=== PATIENT | male | born 1950 | race Caucasian/White ===

== ENCOUNTER 2019-09-10 07:49 | Emergency (ER) | payer MEDICARE ==
[2019-09-10 08:00] VITALS: RESP 20; TEMP 97.4
[2019-09-10] MEDS ORDERED: LIDOCAINE/EPINEPHR/TETRACAINE 5 ML BOTTLE TOPICAL ONE (08:28)
--- NOTE | 2019-09-10 08:58 | ED ---
General Adult HPI - General Source: patient, RN notes reviewed Mode of arrival: ambulatory Limitations: no limitations <Leonides Harvey - Last Filed: 09/10/19 08:54> <Oliver Lorenzana - Last Filed: 09/10/19 16:40> - General Chief complaint: ENT Stated complaint: Nosebleed Time Seen by Provider: 09/10/19 08:27 - History of Present Illness Initial comments: 68-year-old male with a past medical history of hypertension, diabetes mellitus, nosebleeds presents to the emergency determine for nosebleed. States this star noman this morning. States that since he has arrived at the hospital at a stop. States he has seen ENT for this in the past and had to have cautery performed.Patient has no other complaints at this time including shortness of breath, chest pain, abdominal pain, nausea or vomiting, headache, or visual changes. (Leonides Harvey) - Related Data Home Medications Medication Instructions Recorded Confirmed Allopurinol [Zyloprim] 100 mg PO DAILY 10/31/14 10/31/14 Enalapril [Vasotec] 20 mg PO BID 10/31/14 10/31/14 metFORMIN HCL [metFORMIN HCL ER] 1,000 mg PO AC-SUPPER 10/31/14 10/31/14 Previous Rx's Medication Instructions Recorded Oxymetazoline 0.05% Nasl [place] 2 spray EA NOSTRIL BID PRN #1 09/10/19 [Afrin 0.05% Nasal [place]] bottle Allergies Allergy/AdvReac Type Severity Reaction Status Date / Time codeine Allergy Unknown Verified 09/10/19 07:59 Review of Systems ROS Other: All systems not noted in ROS Statement are negative. <Leonides Harvey - Last Filed: 09/10/19 08:54> ROS Other: All systems not noted in ROS Statement are negative. <Oliver Lorenzana - Last Filed: 09/10/19 16:40> ROS Statement: Those systems with pertinent positive or pertinent negative responses have been documented in the HPI. Past Medical History Past Medical History: Diabetes Mellitus, Hypertension, Osteoarthritis (OA) Additional Past Medical History / Comment(s): gout History of Any Multi-Drug Resistant Organisms: None Reported Past Surgical History: Orthopedic Surgery Past Psychological History: No Psychological Hx Reported Smoking Status: Never smoker Past Alcohol Use History: None Reported Past Drug Use History: None Reported <Leonides Harvey - Last Filed: 09/10/19 08:54> General Exam Limitations: no limitations General appearance: alert, in no apparent distress Head exam: Present: atraumatic, normocephalic, normal inspection Eye exam: Present: normal appearance, PERRL, EOMI. Absent: scleral icterus, conjunctival injection, periorbital swelling ENT exam: Present: normal exam, normal oropharynx (No Blood in the oropharynx.), mucous membranes moist, TM's normal bilaterally, normal external ear exam, other (Do not see area for cautery within the nares.) Neck exam: Present: normal inspection, full ROM. Absent: tenderness, meningismus, lymphadenopathy Respiratory exam: Present: normal lung sounds bilaterally. Absent: respiratory distress, wheezes, rales, rhonchi, stridor Cardiovascular Exam: Present: regular rate, normal rhythm, normal heart sounds. Absent: systolic murmur, diastolic murmur, rubs, gallop, clicks Neurological exam: Present: alert <Leonides Harvey - Last Filed: 09/10/19 08:54> Course <Oliver Lorenzana - Last Filed: 09/10/19 16:40> Vital Signs 09/10/19 09/10/19 07:57 09:17 Temperature 97.4 F L Pulse Rate 57 L 76 Respiratory 20 20 Rate Blood Pressure 157/68 144/75 O2 Sat by Pulse 99 99 Oximetry - Reevaluation(s) Reevaluation #1: 09/10/19 16:39 PA supervision: I proceeded [id number] evaluation the patient he did present with complaints the onset of nose bleeding from the left side. He has had similar episodes in the past. He denies any trauma fevers chills nausea vomiting sweats or other symptoms. This began spontaneously this morning. After arrival he was placed in a room with a nasal clamp applied. He was assessed I do agree with the assessment and plan. (Oliver Lorenzana) Medical Decision Making <Leonides Harvey - Last Filed: 09/10/19 08:54> - Medical Decision Making Vitals are stable. Patient is not very hypertensive. Epistaxis this has stopped. However solution was applied to prevent any further bleeding. Patient will be discharged home with Afrin nasal spray. Recommended he return if he has any other worsening symptoms and follow-up with his ENT. (Leonides Harvey) Disposition Is patient prescribed a controlled substance at d/c from ED?: No Time of Disposition: 08:56 <Leonides Harvey - Last Filed: 09/10/19 08:54> <Oliver Lorenzana - Last Filed: 09/10/19 16:40> Clinical Impression: Epistaxis Disposition: HOME SELF-CARE Condition: Good Instructions (If sedation given, give patient instructions): Nosebleed (ED) Additional Instructions: If the nose bleeding starts again squirt 2 sprays of Afrin in each nostril and c lamp for 20 minutes. If this did not stop the bleeding clamp for another 20 minutes. If this still does not stop the bleeding then return to the emergency department. Otherwise follow-up with ENT or primary in one to 2 days. Prescriptions: Oxymetazoline 0.05% Nasl [place] [Afrin 0.05% Nasal [place]] 2 spray EA NOSTRIL BID PRN #1 bottle PRN Reason: Bleeding Referrals: Radha Wheeler MD [Primary Care Provider] - 1-2 days Joe Lomeli DO [Doctor of Osteopathic Medicine] - 1-2 days
[2019-09-10 09:18] VITALS: BP 144/75; PULSE 76
== END 2019-09-10 09:18 | disposition home or self-care (01) ==
LOC: EC 07:49
DX: R04.0 Epistaxis (principal); E11.9 Type 2 diabetes mellitus without complications; I10 Essential (primary) hypertension; Z79.84 Long term (current) use of oral hypoglycemic drugs; Z79.899 Other long term (current) drug therapy; Z88.5 Allergy status to narcotic agent
CPT/HCPCS: 99283

== ENCOUNTER 2024-03-29 10:51 | Emergency (ER) | payer MEDICARE ==
[2024-03-29 11:35] VITALS: RESP 18
--- NOTE | 2024-03-29 13:23 | ED ---
General Adult HPI - General Chief complaint: Recheck/Abnormal Lab/Rx Stated complaint: Difficulty urinating Time Seen by Provider: 03/29/24 12:55 Source: patient, RN notes reviewed, old records reviewed Mode of arrival: ambulatory Limitations: no limitations - History of Present Illness Initial comments: Patient is a 73-year-old male who presents to the emergency department complaining of urinary retention. States this has happened in the past as he does have an enlarged prostate. Currently has been ongoing for approximately 1 week. Is due to see urology been on for multiple months. States he no longer urinates very well at all over the last week and is getting worse. Denies any abdominal pain other than fullness sensation near his bladder. Denies any nausea or vomiting. Denies any diarrhea. Has never required Gomez catheter in the past. Presents for further evaluation at this time. - Related Data Home Medications Medication Instructions Recorded Confirmed Enalapril [Vasotec] 20 mg PO BID 10/31/14 10/31/14 allopurinoL [Zyloprim] 100 mg PO DAILY 10/31/14 10/31/14 metFORMIN HCL [metFORMIN HCL ER] 1,000 mg PO AC-SUPPER 10/31/14 10/31/14 Previous Rx's Medication Instructions Recorded Oxymetazoline 0.05% Nasl [place] 2 spray EA NOSTRIL BID PRN #1 09/10/19 [Afrin 0.05% Nasal [place]] bottle Ciprofloxacin HCl [Cipro] 500 mg PO Q12HR 3 Days #6 tab 03/29/24 Allergies Allergy/AdvReac Type Severity Reaction Status Date / Time codeine Allergy Unknown Verified 03/29/24 11:14 Review of Systems ROS Statement: Those systems with pertinent positive or pertinent negative responses have been documented in the HPI. Review of Systems: CONST: Denies fever EYES: Denies blurry vision ENT: Denies nasal congestion C/V: Denies Chest pain RESP: Denies shortness of breath GI: Denies abdominal pain : Endorses urinary retention SKIN: Denies rash. MSK: Denies joint pain. NEURO: Denies headache ROS Other: All systems not noted in ROS Statement are negative. Past Medical History Past Medical History: Diabetes Mellitus, Hypertension, Osteoarthritis (OA), Prostate Disorder Additional Past Medical History / Comment(s): gout History of Any Multi-Drug Resistant Organisms: None Reported Past Surgical History: Orthopedic Surgery Past Psychological History: No Psychological Hx Reported Smoking Status: Former smoker Past Alcohol Use History: None Reported Past Drug Use History: None Reported General Exam - General Exam Comments Initial Comments: General: Appears in no acute distress. HEAD: Normal with no signs of head trauma. EYES: PERRLA, EOMI, ENT: Hearing grossly intact RESPIRATORY: Clear breath sounds bilaterally. No wheezes, rales, or rhonchi. C/V: Regular rate and rhythm. S1 and S2 auscultated, ABD: Abdomen is soft other than suprapubic distention. No guarding. No rebound tenderness. No peritoneal signs. No tenderness on palpation. EXT: no obvious deformity SKIN: No rashes or lesions observed on exposed skin. NEURO: Alert and oriented x 4. Limitations: no limitations Course Vital Signs 03/29/24 03/29/24 11:10 15:03 Temperature 97.6 F 98.1 F Pulse Rate 67 76 Respiratory 18 18 Rate Blood Pressure 164/78 157/72 O2 Sat by Pulse 98 99 Oximetry Medical Decision Making - Medical Decision Making Was pt. sent in by a medical professional or institution (, PA, ELECTRICAL MAINTENANCE MAN, urgent care, hospital, or prison...) When possible be specific @ -No Did you speak to anyone other than the patient for history (EMS, parent, family, police, friend...)? What history was obtained from this source @ -No Did you review nursing and triage notes (agree or disagree)? Why? @ -I reviewed and agree with nursing and triage notes Were old charts reviewed (outside hosp., previous admission, EMS record, old EKG, old radiological studies, urgent care reports/EKG's, prison records)? Report findings @ -No old charts were reviewed Differential Diagnosis (chest pain, altered mental status, abdominal pain women, abdominal pain men, vaginal bleeding, weakness, fever, dyspnea, syncope, headache, dizziness, GI bleed, back pain, seizure, CVA, palpatations, mental health, musculoskeletal)? @ -Urinary retention, enlarged prostate, UTI, CAROL. This list is not all inclusive. EKG interpreted by me (3pts min.). @ -None done X-rays interpreted by me (1pt min.). @ -None done CT interpreted by me (1pt min.). @ -None done U/S interpreted by me (1pt. min.). @ -None done What testing was considered but not performed or refused? (CT, X-rays, U/S, labs)? Why? @ -None What meds were considered but not given or refused? Why? @ -None Did you discuss the management of the patient with other professionals (professionals i.e. , PA, ELECTRICAL MAINTENANCE MAN, lab, RT, psych nurse, social media campaign manager, peanut shaker, teacher, surveillance sensor officer, family independence case manager)? Give summary @ -No Was smoking cessation discussed for >3mins.? @ -No Was critical care preformed (if so, how long)? @ -No Were there social determinants of health that impacted care today? How? (Homelessness, low income, unemployed, alcoholism, drug addiction, transportation, low edu. Level, literacy, decrease access to med. care, half-way, rehab)? @ -No Was there de-escalation of care discussed even if they declined (Discuss DNR or withdrawal of care, Hospice)? DNR status @ -No What co-morbidities impacted this encounter? (DM, HTN, Smoking, COPD, CAD, Cancer, CVA, ARF, Chemo, Hep., AIDS, mental health diagnosis, sleep apnea, morbid obesity)? @ -Enlarged prostate Was patient admitted / discharged? Hospital course, mention meds given and route, prescriptions, significant lab abnormalities, going to OR and other pertinent info. @ -Patient presents for urinary retention. Postvoid residual was 600 cc in the bladder. Therefore Gomez catheter will be placed. Will obtain basic labs to evaluate renal function as well as urinalysis. Patient was in agreement this plan. Vital signs within acceptable limits. After Gomez catheter was placed, patient had 800 cc of urine output. Laboratory studies unremarkable with normal kidney function. Urinalysis unremarkable. I updated the patient at this time. He will go home with Gomez catheter in place with instructions to follow-up with urology. He will be empirically placed on antibiotics as well. Patient was in agreement this plan. Strict return precautions discussed. I will provide the patient with a prescription for ciprofloxacin. I instructed the patient to follow up with their PCP in the next 1-3 days. I provided contact information for follow up with urology. I explained that the patient should return to the emergency department if they experience any worsening symptoms. Strict return precautions were discussed with the patient. The patient expressed understanding of these instructions. I answered all questions that the patient had. The patient was discharged home in good condition with their prescriptions and follow up information. Undiagnosed new problem with uncertain prognosis? @ -No Drug Therapy requiring intensive monitoring for toxicity (Heparin, Nitro, Insulin, Cardizem)? @ -No Were any procedures done? @ -No Diagnosis/symptom? @ -Urinary retention, Gomez catheter placement Acute, or Chronic, or Acute on Chronic? @ -Acute Uncomplicated (without systemic symptoms) or Complicated (systemic symptoms)? @ -Complicated Side effects of treatment? @ -No Exacerbation, Progression, or Severe Exacerbation? @ -No Poses a threat to life or bodily function? How? (Chest pain, [place], [place], pneumonia, PE, COPD, DKA, ARF, appy, cholecystitis, CVA, Diverticulitis, Homicidal, Suicidal, threat to staff... and all critical care pts) @ -Unlikely - Lab Data Result diagrams: 03/29/24 13:21 03/29/24 13:21 Lab Results 03/29/24 03/29/24 03/29/24 Range/Units 13:16 13:21 13:21 WBC 10.5 (3.8-10.6) k/uL RBC 5.59 (4.30-5.90) m/uL Hgb 16.4 (13.0-17.5) gm/dL Hct 49.9 (39.0-53.0) % MCV 89.2 (80.0-100.0) fL MCH 29.3 (25.0-35.0) pg MCHC 32.9 (31.0-37.0) g/dL RDW 13.8 (11.5-15.5) % Plt Count 284 (150-450) k/uL MPV 7.1 Neutrophils % 69 % Lymphocytes % 20 % Monocytes % 5 % Eosinophils % 3 % Basophils % 1 % Neutrophils # 7.2 (1.3-7.7) k/uL Lymphocytes # 2.1 (1.0-4.8) k/uL Monocytes # 0.6 (0-1.0) k/uL Eosinophils # 0.3 (0-0.7) k/uL Basophils # 0.1 (0-0.2) k/uL Sodium 141 (137-145) mmol/L Potassium 3.8 (3.5-5.1) mmol/L Chloride 102 (98-107) mmol/L Carbon Dioxide 29 (22-30) mmol/L Anion Gap 10 mmol/L BUN 20 (9-20) mg/dL Creatinine 0.84 (0.66-1.25) mg/dL Est GFR (CKD-EPI)AfAm >90 (>60 ml/min/1.73 sqM) Est GFR (CKD-EPI)NonAf 88 (>60 ml/min/1.73 sqM) Glucose 90 (74-99) mg/dL Calcium 9.9 (8.4-10.2) mg/dL Urine Color Light Yellow Urine Appearance Clear (Clear) Urine pH 6.0 (5.0-8.0) Ur Specific [place] 1.019 (1.001-1.035) Urine Protein Negative (Negative) Urine Glucose (UA) Negative (Negative) Urine Ketones Negative (Negative) Urine Blood Small H (Negative) Urine Nitrite Negative (Negative) Urine Bilirubin Negative (Negative) Urine Urobilinogen <2.0 (<2.0) mg/dL Ur Leukocyte Esterase Negative (Negative) Urine RBC 105 H (0-5) /hpf Urine WBC 3 (0-5) /hpf Urine Mucus Rare H (None) /hpf Disposition Clinical Impression: Urinary retention, Gomez catheter in place Disposition: HOME SELF-CARE Condition: Good Instructions (If sedation given, give patient instructions): Urinary Retention in Men (ED), Gomez Catheter Placement and Care (ED) Prescriptions: Ciprofloxacin HCl [Cipro] 500 mg PO Q12HR 3 Days #6 tab Is patient prescribed a controlled substance at d/c from ED?: No Referrals: Radha Wheeler MD [Primary Care Provider] - 1-2 days Gerard Saleh MD [STAFF PHYSICIAN] - 1-2 days Time of Disposition: 14:27
[2024-03-29 13:25] LABS: Basophils # (A) 0.1 k/uL (0-0.2); Basophils % (A) 1 %; Eosinophils # (A) 0.3 k/uL (0-0.7); Eosinophils % (A) 3 %; HCT 49.9 % (39.0-53.0); HGB 16.4 gm/dL (13.0-17.5); Lymphocytes # (A) 2.1 k/uL (1.0-4.8); Lymphocytes % (A) 20 %; MCH 29.3 pg (25.0-35.0); MCHC 32.9 g/dL (31.0-37.0); MCV 89.2 fL (80.0-100.0); Mean Platelet Volume 7.1; Monocytes # (A) 0.6 k/uL (0-1.0); Monocytes % (A) 5 %; Neutrophils # (A) 7.2 k/uL (1.3-7.7); Neutrophils % (A) 69 %; Platelet Count 284 k/uL (150-450); RBC 5.59 m/uL (4.30-5.90); RDW 13.8 % (11.5-15.5); WBC 10.5 k/uL (3.8-10.6)
[2024-03-29 13:32] LABS: Appearance,Urine Clear (Clear); Bilirubin,Urine Negative (Negative); Blood,Urine Small (Negative); Color,Urine Light Yellow; Glucose,Urine (UA) Negative (Negative); Ketones,Urine Negative (Negative); Leukocyte Esterase,Urine Negative (Negative); Mucus,Urine Rare /hpf; Nitrite,Urine Negative (Negative); Protein,Urine Negative (Negative); RBC,Urine 105 /hpf (0-5); Specific Gravity,Urine 1.019 (1.001-1.035); Urobilinogen,Urine <2.0 mg/dL (<2.0); WBC,Urine 3 /hpf (0-5)
[2024-03-29 13:48] LABS: African American GFR (CKD) >90 (>60 ml/min/1.73 sqM); Anion Gap 10 mmol/L; Blood Urea Nitrogen 20 mg/dL (9-20); Calcium 9.9 mg/dL (8.4-10.2); Carbon Dioxide 29 mmol/L (22-30); Chloride 102 mmol/L (98-107); Glucose 90 mg/dL (74-99); Non-African American GFR(CKD) 88 (>60 ml/min/1.73 sqM); Potassium 3.8 mmol/L (3.5-5.1); Sodium 141 mmol/L (137-145)
[2024-03-29] MEDS: CIPROFLOXACIN HCL 500 MG TAB PO STA (14:48)
[2024-03-29 15:19] VITALS: BP 157/72; PULSE 76; TEMP 98.1
== END 2024-03-29 15:17 | disposition home or self-care (01) ==
LOC: EC 10:51
DX: N40.1 Benign prostatic hyperplasia with lower urinary tract symptoms (principal); R33.8 Other retention of urine; Z88.5 Allergy status to narcotic agent; Z87.891 Personal history of nicotine dependence
CPT/HCPCS: 36415; 51702; 51798; 80048; 81001; 85025; 99284

== ENCOUNTER 2024-03-30 07:46 | Emergency (ER) | payer MEDICARE ==
--- NOTE | 2024-03-30 08:14 | ED ---
General Adult HPI - General Chief complaint: Urogenital Stated complaint: Cath malfunction Time Seen by Provider: 03/30/24 07:56 Source: patient Mode of arrival: ambulatory Limitations: no limitations - History of Present Illness Initial comments: Dictation was produced using [employer] dictation software. please excuse any grammatical, word or spelling errors. Chief Complaint: 73-year-old male with Gomez catheter malfunction History of Present Illness: Patient 73-year-old male he was seen in emergency department yesterday for urinary tract obstruction. He reports a lot of issues with his prostate. Gomez catheter placed with initial drainage. He noticed this morning that his Gomez catheter was not draining and that he is having pressure in his suprapubic area. The ROS documented in this emergency department record has been reviewed and confirmed by me. Those systems with pertinent positive or negative responses have been documented in the HPI. All other systems are other negative and/or noncontributory. - Related Data Home Medications Medication Instructions Recorded Confirmed Enalapril [Vasotec] 20 mg PO BID 10/31/14 10/31/14 allopurinoL [Zyloprim] 100 mg PO DAILY 10/31/14 10/31/14 metFORMIN HCL [metFORMIN HCL ER] 1,000 mg PO AC-SUPPER 10/31/14 10/31/14 Previous Rx's Medication Instructions Recorded Oxymetazoline 0.05% Nasl [place] 2 spray EA NOSTRIL BID PRN #1 09/10/19 [Afrin 0.05% Nasal [place]] bottle Ciprofloxacin HCl [Cipro] 500 mg PO Q12HR 3 Days #6 tab 03/29/24 Allergies Allergy/AdvReac Type Severity Reaction Status Date / Time codeine Allergy Unknown Verified 03/30/24 07:52 Review of Systems ROS Statement: Those systems with pertinent positive or pertinent negative responses have been documented in the HPI. ROS Other: All systems not noted in ROS Statement are negative. Past Medical History Past Medical History: Diabetes Mellitus, Hypertension, Osteoarthritis (OA), Prostate Disorder Additional Past Medical History / Comment(s): gout History of Any Multi-Drug Resistant Organisms: None Reported Past Surgical History: Orthopedic Surgery Past Psychological History: No Psychological Hx Reported Smoking Status: Former smoker Past Alcohol Use History: None Reported Past Drug Use History: None Reported General Exam - General Exam Comments Initial Comments: General: Well-appearing, nontoxic, no acute distress. Head: Normocephalic, atraumatic Eyes: PERRLA, EOMI ENT: Airway patent Chest: Nonlabored breathing Skin: No visual rash, normal skin tone Neuro: Alert and oriented 3 Musculoskeletal: No gross abnormalities Limitations: no limitations Course Vital Signs 03/30/24 07:47 Temperature 97.5 F L Pulse Rate 95 Respiratory 20 Rate Blood Pressure 163/110 O2 Sat by Pulse 98 Oximetry - Reevaluation(s) Reevaluation #1: 03/30/24 08:13 bladder scan of 800. Nurse attempted troubleshooting Gomez catheter and it appears that it is obstructed. Medical Decision Making - Medical Decision Making Was pt. sent in by a medical professional or institution (, PA, BOWLING TEACHER, urgent care, hospital, or intermediate...) When possible be specific @ -No Did you speak to anyone other than the patient for history (EMS, parent, family, police, friend...)? What history was obtained from this source @ -No Did you review nursing and triage notes (agree or disagree)? Why? @ -I reviewed and agree with nursing and triage notes Were old charts reviewed (outside hosp., previous admission, EMS record, old EKG, old radiological studies, urgent care reports/EKG's, intermediate records)? Report findings @ -No old charts were reviewed Differential Diagnosis (chest pain, altered mental status, abdominal pain women, abdominal pain men, vaginal bleeding, musculoskeletal, weakness, fever, dyspnea, syncope, headache, dizziness, GI bleed, back pain, seizure, CVA, palpatations, mental health)? @ -Differential Abdominal Pain Men: Appendicitis, cholecystitis, diverticulosis, ischemic bowel, pancreatitis, hepatitis, UTI, gastroenteritis, AAA, incarcerated hernia, bowel obstruction, constipation, inflammatory bowel, hepatitis, peptic ulcer disease, splenic infarction, perforated viscus, testicular torsion, this is not meant to be an all-inclusive list EKG interpreted by me (3pts min.). @ -None done X-rays interpreted by me (1pt min.). @ -None done CT interpreted by me (1pt min.). @ -None done U/S interpreted by me (1pt. min.). @ -None done What testing was considered but not performed or refused? (CT, X-rays, U/S, labs)? Why? @ -None What meds were considered but not given or refused? Why? @ -None Did you discuss the management of the patient with other professionals (professionals i.e. , PA, BOWLING TEACHER, lab, RT, psych nurse, older adult social work specialist, storage garage attendant, teacher, parking regulation enforcement officer, mattress spring encaser)? Give summary @ -No Was smoking cessation discussed for >3mins.? @ -No Was critical care preformed (if so, how long)? @ -No Were there social determinants of health that impacted care today? How? (Homelessness, low income, unemployed, alcoholism, drug addiction, transportation, low edu. Level, literacy, decrease access to med. care, halfway, rehab)? @ -No Was there de-escalation of care discussed even if they declined (Discuss DNR or withdrawal of care, Hospice)? DNR status @ -No What co-morbidities impacted this encounter? (DM, HTN, Smoking, COPD, CAD, Cancer, CVA, ARF, Chemo, Hep., AIDS, mental health diagnosis, sleep apnea, morbid obesity)? @ -None Was patient admitted / discharged? Hospital course, mention meds given and route, prescriptions, significant lab abnormalities, going to OR and other pertinent info. @ -73-year-old male presents to the emergency department for Gomez catheter malfunction. Bladder scan showed urinary retention. An attempt was made to flush Gomez catheter however with no alleviation of obstruction. Gomez catheter was removed. Christen Gomez catheter was placed. There was a blood clot that was flushed raising suspicion that Gomez catheter was obstructed by blood clot. Gomez catheter was placed. There was some bloody urine. Gomez catheter was flushed. Patient had approximately 1200 cc of urine removed. Patient feeling significantly improved. Patient discharged advised follow-up with urology. Undiagnosed new problem with uncertain prognosis? @ -No Drug Therapy requiring intensive monitoring for toxicity (Heparin, Nitro, Insulin, Cardizem)? @ -No Were any procedures done? @ -No Diagnosis/symptom? Acute, or Chronic, or Acute on Chronic? Uncomplicated (without systemic symptoms) or Complicated (systemic symptoms)? @ -Gomez catheter malfunction Side effects of treatment? @ -No Exacerbation, Progression, or Severe Exacerbation? @ -No Poses a threat to life or bodily function? How? (Chest pain, [place], [place], pneumonia, PE, COPD, DKA, ARF, appy, cholecystitis, CVA, Diverticulitis, Homicidal, Suicidal, threat to staff... and all critical care pts) @ -yes Disposition Clinical Impression: Malfunction of Gomez catheter Disposition: HOME SELF-CARE Condition: Good Instructions (If sedation given, give patient instructions): Gomez Catheter Placement and Care (ED) Is patient prescribed a controlled substance at d/c from ED?: No Referrals: Gerard Saleh MD [STAFF PHYSICIAN] - 1-2 days Time of Disposition: 08:33
[2024-03-30] MEDS: LIDOCAINE 2% URO-JET JELLY 5 ML KIT URETHRAL ONE (08:19)
[2024-03-30 10:20] VITALS: BP 142/86; PULSE 86; RESP 18; TEMP 98.3
== END 2024-03-30 09:38 | disposition home or self-care (01) ==
LOC: EC 07:46
DX: T83.091A Other mechanical complication of indwelling urethral catheter, initial encounter (principal); Z87.891 Personal history of nicotine dependence; Z88.5 Allergy status to narcotic agent
CPT/HCPCS: 51702; 99283

== ENCOUNTER 2024-03-30 13:19 | Emergency (ER) | payer MEDICARE ==
[2024-03-30 14:45] VITALS: TEMP 98.2
--- NOTE | 2024-03-30 15:07 | ED ---
Male Urogenital HPI - General Chief complaint: Urogenital Stated complaint: Cath issues Time Seen by Provider: 03/30/24 13:29 Source: patient, RN notes reviewed Mode of arrival: ambulatory Limitations: no limitations - History of Present Illness Initial comments: 73-year-old male presents emergency department with chief complaint of urinary retention, Gomez catheter clogged. Patient states he had a place the other day and was seen here earlier today and did have it exchanged states that it is not draining again no on the car ride here he felt like something change and it was draining. Patient denies any fevers or chills he states he just has pressure. - Related Data Home Medications Medication Instructions Recorded Confirmed Enalapril [Vasotec] 20 mg PO BID 10/31/14 10/31/14 allopurinoL [Zyloprim] 100 mg PO DAILY 10/31/14 10/31/14 metFORMIN HCL [metFORMIN HCL ER] 1,000 mg PO AC-SUPPER 10/31/14 10/31/14 Previous Rx's Medication Instructions Recorded Oxymetazoline 0.05% Nasl [place] 2 spray EA NOSTRIL BID PRN #1 09/10/19 [Afrin 0.05% Nasal [place]] bottle Ciprofloxacin HCl [Cipro] 500 mg PO Q12HR 3 Days #6 tab 03/29/24 Allergies Allergy/AdvReac Type Severity Reaction Status Date / Time codeine Allergy Unknown Verified 03/30/24 07:52 Review of Systems ROS Statement: Those systems with pertinent positive or pertinent negative responses have been documented in the HPI. ROS Other: All systems not noted in ROS Statement are negative. Past Medical History Past Medical History: Diabetes Mellitus, Hypertension, Osteoarthritis (OA), Prostate Disorder Additional Past Medical History / Comment(s): gout History of Any Multi-Drug Resistant Organisms: None Reported Past Surgical History: Orthopedic Surgery Past Psychological History: No Psychological Hx Reported Smoking Status: Former smoker Past Alcohol Use History: None Reported Past Drug Use History: None Reported General Exam Limitations: no limitations General appearance: alert, in no apparent distress Head exam: Present: atraumatic, normocephalic, normal inspection Respiratory exam: Present: normal lung sounds bilaterally. Absent: respiratory distress, wheezes, rales, rhonchi, stridor Cardiovascular Exam: Present: regular rate, normal rhythm, normal heart sounds. Absent: systolic murmur, diastolic murmur, rubs, gallop, clicks GI/Abdominal exam: Present: soft, normal bowel sounds. Absent: distended, tenderness, guarding, rebound, rigid exam: Present: other (Gomez catheter in place) Course Vital Signs 03/30/24 13:54 Temperature 98.2 F Pulse Rate 86 Respiratory 20 Rate Blood Pressure 152/91 O2 Sat by Pulse 98 Oximetry Medical Decision Making - Medical Decision Making Was pt. sent in by a medical professional or institution ([facility], RETAIL BUYER, urgent care, hospital, or assisted...) When possible be specific @ -No Did you speak to anyone other than the patient for history (EMS, parent, family, police, friend...)? What history was obtained from this source @ -No Did you review nursing and triage notes (agree or disagree)? Why? @ -I reviewed and agree with nursing and triage notes Were old charts reviewed (outside hosp., previous admission, EMS record, old EKG, old radiological studies, urgent care reports/EKG's, assisted records)? Report findings @ -No old charts were reviewed Differential Diagnosis (chest pain, altered mental status, abdominal pain women, abdominal pain men, vaginal bleeding, weakness, fever, dyspnea, syncope, headache, dizziness, GI bleed, back pain, seizure, CVA, palpatations, mental health, musculoskeletal)? @ -Urinary retention, Gmoez catheter complication EKG interpreted by me (3pts min.). @ -None X-rays interpreted by me (1pt min.). @ -None done CT interpreted by me (1pt min.). @ -None done U/S interpreted by me (1pt. min.). @ -None done What testing was considered but not performed or refused? (CT, X-rays, U/S, labs)? Why? @ -None What meds were considered but not given or refused? Why? @ -None Did you discuss the management of the patient with other professionals (professionals i.e. [facility] Pat, RETAIL BUYER, lab, RT, psych nurse, social media marketer, boilermaker industrial boilers, teacher, reserve officer, case resolution specialist)? Give summary @ -No Was smoking cessation discussed for >3mins.? @ -No Was critical care preformed (if so, how long)? @ -No Were there social determinants of health that impacted care today? How? (Homelessness, low income, unemployed, alcoholism, drug addiction, transportation, low edu. Level, literacy, decrease access to med. care, senior living, rehab)? @ -No Was there de-escalation of care discussed even if they declined (Discuss DNR or withdrawal of care, Hospice)? DNR status @ -No What co-morbidities impacted this encounter? (DM, HTN, Smoking, COPD, CAD, Cancer, CVA, ARF, Chemo, Hep., AIDS, mental health diagnosis, sleep apnea, morbid obesity)? @ -None Was patient admitted / discharged? Hospital course, mention meds given and route, prescriptions, significant lab abnormalities, going to OR and other pertinent info. @ -Discharge patient was observed and had catheter irrigated multiple times patient has no current symptoms. Patient will be discharged in stable condition. Undiagnosed new problem with uncertain prognosis? @ -No Drug Therapy requiring intensive monitoring for toxicity (Heparin, Nitro, Insulin, Cardizem)? @ -No Were any procedures done? @ -No Diagnosis/symptom? @ -Urinary retention, Gomez catheter complication Acute, or Chronic, or Acute on Chronic? @ -Acute Uncomplicated (without systemic symptoms) or Complicated (systemic symptoms)? @ -Uncomplicated Side effects of treatment? @ -No Exacerbation, Progression, or Severe Exacerbation? @ -No Poses a threat to life or bodily function? How? (Chest pain, [place], [place], pneumonia, PE, COPD, DKA, ARF, appy, cholecystitis, CVA, Diverticulitis, Homicidal, Suicidal, threat to staff... and all critical care pts) @ -No Disposition Clinical Impression: Urinary retention, Malfunction of Gomez catheter Disposition: HOME SELF-CARE Condition: Stable Additional Instructions: Please return to the Emergency Department if symptoms worsen or any other concerns. Is patient prescribed a controlled substance at d/c from ED?: No Referrals: Radha Wheeler MD [Primary Care Provider] - 1-2 days Time of Disposition: 15:06
[2024-03-30 16:14] VITALS: BP 147/89; PULSE 82; RESP 18
== END 2024-03-30 17:09 | disposition home or self-care (01) ==
LOC: EC 13:19
DX: T83.091A Other mechanical complication of indwelling urethral catheter, initial encounter (principal); R33.9 Retention of urine, unspecified; Z87.891 Personal history of nicotine dependence
CPT/HCPCS: 51702; 99283

== ENCOUNTER → 2024-04-28 | Outpatient (CLI) | payer MEDICARE ==
--- NOTE | 2024-04-28 19:57 | CT ---
EXAMINATION TYPE: CT pelvis wo con DATE OF EXAM: 04/28/2024 COMPARISON: None HISTORY: 73-year-old male R31.0, gross hematuria, prostate, urinary calculus TECHNIQUE: Contiguous axial scanning of the pelvis without IV contrast. Coronal and sagittal reconstr uctions performed. CT DLP: 554.2 mGycm Automated exposure control for dose reduction was used. FINDINGS: Marked prostatic enlargement measuring 7.2 cm wide and 8.2 cm. A Gomez catheter is in place within t he expected bladder lumen. Suspect fairly heavy circumferential bladder wall thickening. Numerous darrell cifications around the Gomez catheter balloon likely represent bladder stones with individual stones measuring as large as 9 mm. Left-sided pelvic phlebolith. [id number] atherosclerotic calcifications visualized distal abdominal aorta and common iliac ar teries. No pelvic lymphadenopathy seen. Advanced hypertrophic facet arthropathy lower lumbar spine with degenerative grade 1 anterolisthesis L4-L5. Severe degenerative disc disease L5-S1. Mild degenerative change of the hips. IMPRESSION: 1. SEVERE PROSTATOMEGALY MEASURING UP TO 7.2 X 8.2 CM. 2. A Gomez catheter is in place but there are numerous calcifications around the Gomez balloon with i ndividual calcifications measuring up to 9 mm, suspected bladder stones. 3. Also, suspect fairly heavy circumferential bladder wall thickening which could relate to marked, c hronic bladder wall hypertrophy. Clinically correlate.
== END | disposition home or self-care (01) ==
LOC: RADCTMAIN 13:10
PROVIDERS: ATTEND Urology
DX: N40.0 Benign prostatic hyperplasia without lower urinary tract symptoms (principal); R31.0 Gross hematuria
CPT/HCPCS: 72192

== ENCOUNTER → 2024-04-28 | Outpatient (CLI) | payer MEDICARE ==
[2024-04-28 19:23] LABS: Basophils # (A) 0.08 X 10*3/uL (0.00-0.10); Basophils % (A) 0.8 %; Eosinophils # (A) 0.37 X 10*3/uL (0.04-0.35); Eosinophils % (A) 3.6 %; HCT 47.5 % (39.6-50.0); HGB 15.6 g/dL (13.0-17.0); Lymphocytes # (A) 2.26 X 10*3/uL (0.90-5.00); Lymphocytes % (A) 21.9 %; MCH 29.1 pg (27.0-32.0); MCHC 32.8 g/dL (32.0-37.0); MCV 88.5 FL (80.0-97.0); Mean Platelet Volume 9.4 FL (9.5-12.2); Monocytes # (A) 0.93 X 10*3/uL (0.20-1.00); NRBC Per 100 WBC 0 X 10*3/uL (0.00-0.01); Neutrophils # (A) 6.66 X 10*3/uL (1.80-7.70); Neutrophils % (A) 64.3 %; Platelet Count 305 X 10*3/uL (140-440); RBC 5.37 X 10*6/uL (4.40-5.60); RDW 14.3 % (11.5-14.5); WBC 10.34 X 10*3/uL (4.50-10.00)
[2024-04-28 20:58] LABS: BUN/Creat Ratio 20.89 Ratio (12.00-20.00); Blood Urea Nitrogen 18.8 mg/dL (9.0-27.0); Calcium 10.1 mg/dL (8.7-10.3); Carbon Dioxide 26.2 mmol/L (21.6-31.8); Chloride 99 mmol/L (96-109); Glucose 100 mg/dL (70-110); Potassium 3.9 mmol/L (3.5-5.5); Sodium 139 mmol/L (135-145)
== END | disposition home or self-care (01) ==
LOC: LABPAT 12:46
PROVIDERS: ATTEND Urology
DX: Z01.812 Encounter for preprocedural laboratory examination (principal); N40.1 Benign prostatic hyperplasia with lower urinary tract symptoms; R31.0 Gross hematuria
CPT/HCPCS: 36415; 80048; 85025; 86850; 86900; 86901

== ENCOUNTER 2024-05-06 09:57 | Day surgery (SDC) | payer MEDICARE ==
--- NOTE | 2024-04-27 11:02 | P.HPIHPCON ---
History of Present Illness H&P Date: 04/27/24 Chief Complaint: Urinary retention, BPH This is a 73-year-old male with history of 169 g prostate, developed urinary retention secondary to that. Discussed given the size of his prostate the preferred approach would be either to proceed with a robotic simple prostatectomy versus a HoLEP. Risk and benefit of each approach were discussed. He agreed to proceed with a robotic simple prostatectomy, aware the risk which includes but not limited to bleeding, infection, urinary incontinence, retrograde ejaculation, erectile dysfunction. Discussed also risk of injury to nearby organs which includes but not limited to bladder bowel and rectum. Risk of anesthesia was also discussed. Discussed also potential persistent retention even with a simple prostatectomy. He understood all the risk and agreed to proceed Consent for Procedure: I have explained the operation/procedure to the patient, including the risks, benefits, side effects, alternative therapies (including not receiving the proposed treatment or service), the likelihood of the patient achieving his/her goals, and potential recuperation problems for the procedure/sedation/analgesia, as well as any blood products, if indicated. I also explained to the patient the risks, benefits and side effects of the alternatives, as well as the risks related to not receiving the proposed procedure, care, treatment, or services. Past Medical History Past Medical History: Diabetes Mellitus, Hypertension, Osteoarthritis (OA), Prostate Disorder Additional Past Medical History / Comment(s): gout History of Any Multi-Drug Resistant Organisms: None Reported Past Surgical History: Orthopedic Surgery Past Psychological History: No Psychological Hx Reported Smoking Status: Former smoker Past Alcohol Use History: None Reported Past Drug Use History: None Reported Medications and Allergies Home Medications Medication Instructions Recorded Confirmed Type Enalapril [Vasotec] 20 mg PO BID 10/31/14 10/31/14 History allopurinoL [Zyloprim] 100 mg PO DAILY 10/31/14 10/31/14 History metFORMIN HCL [metFORMIN HCL ER] 1,000 mg PO AC-SUPPER 10/31/14 10/31/14 History Oxymetazoline 0.05% Nasl [place] 2 spray EA NOSTRIL BID PRN #1 09/10/19 Rx [Afrin 0.05% Nasal [place]] bottle Ciprofloxacin HCl [Cipro] 500 mg PO Q12HR 3 Days #6 tab 03/29/24 Rx Allergies Allergy/AdvReac Type Severity Reaction Status Date / Time codeine Allergy Unknown Verified 03/30/24 07:52 Surgical - Exam - General no distress, no pain - Eyes normal ocular movement, no pale - ENT normal nares, normal mucosa - Respiratory normal expansion, normal respiratory effort - Abdomen Abdomen: soft, non tender, no distended - Psychiatric oriented to time, oriented to person, oriented to place Assessment and Plan Assessment: OR for robotic simple prostatectomy
[~2024-05-06 09:57] MED LIST: HYDROmorphone 0.5 MG/0.5 ML SYRINGE IVP PRN; LIDOCAINE 1% (10MG/ML) FOR IV START INTRADERMA PRN; MIDAZOLAM 2 MG/2 ML VIAL IV PRN; fentaNYL (PF) 50 MCG/ML 2 ML AMP IV PRN
[2024-05-06] MEDS: IV FLUID CONTINUATION 1,000 ML IV ONE ×2 (11:28→11:34)
[2024-05-06 11:31] LABS: Glucose,Whole Blood 118 mg/dL (70-110)
[2024-05-06] MEDS: LACTATED RINGERS 1,000 ML IV SCH ×2 (11:34→11:41)
[2024-05-06] MEDS: DEXAMETHASONE SOD PHOSPHATE 4 MG/ML 1 ML VIAL IV ONE (11:36)
[2024-05-06] MEDS: ONDANSETRON 4 MG/2 ML VIAL IVP ONE (11:36)
[2024-05-06] MEDS: MIDAZOLAM 2 MG/2 ML VIAL IVP ONE (11:49)
--- NOTE | 2024-05-06 12:10 | P.ANPRN ---
Procedure Note - Anesthesia - Nerve Block Performed Bilateral Transversus Abdominis Single Time Out Performed: Yes Date of Procedure: 05/06/24 Procedure Start Time: 11:30 Procedure Stop Time: 11:40 Location of Patient: PreOp Indication: Acute Post-Operative Pain, Dx/Pain Location, Requested by Surgeon Sedation Type: Sedate with meaningful contact maintained Preparation: Sterile Prep Position: Supine Catheter: None Needle Types: Pajunk Needle Gauge: 21 Ultrasound used to visualize needle placement: Yes Ultrasound used to observe medication spread: Yes Injectate: Other (see comment) (20 ml 0.25% ropivacaine each side) Blood Aspirated: No Pain Paresthesia on Injection Noted: No Resistance on Injection: Normal Image Stored and Saved: Yes Events: Uneventful and Well Tolerated
[2024-05-06] MEDS ORDERED: SUCCINYLCHOLINE CHLORIDE 200 MG/10 ML VIAL IV ONE (12:24)
[2024-05-06] MEDS ORDERED: PROPOFOL 10 MG/ML 20 ML VIAL IV ONE (12:24)
[2024-05-06] MEDS ORDERED: ONDANSETRON 4 MG/2 ML VIAL ONE (12:24)
[2024-05-06] MEDS ORDERED: MIDAZOLAM 2 MG/2 ML VIAL ONE (12:24)
[2024-05-06] MEDS ORDERED: HYDROmorphone (PF) 1 MG/ML ONE (12:24)
[2024-05-06] MEDS ORDERED: KETOROLAC 15 MG/ML 1 ML VIAL ONE (12:24)
[2024-05-06] MEDS ORDERED: NEOSTIGMINE 1 MG/ML 10 ML VIAL ONE (12:24)
[2024-05-06] MEDS ORDERED: GLYCOPYRROLATE 0.2 MG/ML 2 ML VIAL ONE (12:24)
[2024-05-06] MEDS ORDERED: LIDOCAINE 1% INJ 10MG/ML (20 ML MDV) ONE (12:24)
[2024-05-06] MEDS ORDERED: SODIUM CHLORIDE 0.9% (PF) 10 ML VIAL ONE (12:24)
[2024-05-06] MEDS ORDERED: fentaNYL (PF) 50 MCG/ML 2 ML AMP ONE (12:24)
[2024-05-06] MEDS ORDERED: ROPIVACAINE 5 MG/ML 30 ML VIAL ONE (12:24)
[2024-05-06] MEDS ORDERED: ROCURONIUM 10 MG/ML (5 ML VIAL) IV ONE (12:24)
[2024-05-06] MEDS: GENTAMICIN 40 MG/ML 2 ML VIAL IRRIGATION ONE (12:29)
[2024-05-06] MEDS: BUPIVACAINE (PF) 0.25% 30 ML VIAL SQ ONE ×2 (12:29)
[2024-05-06] MEDS: LACTATED RINGERS 1,000 ML IV ONE ×2 (14:21→14:49)
[2024-05-06] MEDS ORDERED: OXYMETAZOLINE 0.05% NASL SPRAY 1 SPRAY BOTTLE EA NOSTRIL PRN (17:59)
[2024-05-06] MEDS ORDERED: HYDROmorphone 1 MG/ML 1 ML SYRINGE IVP PRN (18:04)
[2024-05-06] MEDS ORDERED: ONDANSETRON 4 MG/2 ML VIAL IVP PRN (18:04)
--- NOTE | 2024-05-06 18:11 | P.OP ---
Date of Procedure: 05/06/24 Preoperative Diagnosis: BPH, urinary retention, bladder stones Postoperative Diagnosis: Same Procedure(s) Performed: Robotic assisted laparoscopic simple prostatectomy, bladder stone removals Implants: None Anesthesia: ANABELAA Surgeon: Gerard Saleh Estimated Blood Loss (ml): 450 Pathology: other (Prostate adenoma, bladder stones) Condition: stable Disposition: PACU Indications for Procedure: This is a 73-year-old male with history of 169 g prostate, developed urinary retention secondary to that. Discussed given the size of his prostate the preferred approach would be either to proceed with a robotic simple prostatectomy versus a HoLEP. Risk and benefit of each approach were discussed. He agreed to proceed with a robotic simple prostatectomy, aware the risk which includes but not limited to bleeding, infection, urinary incontinence, retrograd e ejaculation, erectile dysfunction. Discussed also risk of injury to nearby organs which includes but not limited to bladder bowel and rectum. Risk of anesthesia was also discussed. Discussed also potential persistent retention even with a simple prostatectomy. He understood all the risk and agreed to proceed Operative Findings: Significant prostatic enlargement, with intravesical extension, greater than 20 stones were removed from the bladder Description of Procedure: After preoperative antibiotics were started, the patient was taken to the operating room. Anesthesia was induced and the patient was placed in a supine position with adequate padding of the pressure points, shoulders, back, legs and arms. He was then prepped and draped in the standard fashion. A critical pause was performed using two patient identifiers. A 16F myles catheter was placed to gravity drainage. A pneumoperitoneum was obtained using a Veress needle, after pneumoperitoneum was obtained a 8 mm camera port was placed. Under direct vision a 8mm robotic ports was placed lateral to each rectus slightly below the camera port. The left iliac fossa 8mm port was placed. The right psychology assistant right iliac fossa 12mm port and right paramedian 5mm portwere placed. After the patient was placed in the trendelenberg position, the robot was then docked to the 8mm robotic ports and then each robotic arm and tower was checked in relation to the patient's legs and hands to avoid inadvertent compression. The peritoneal cavity was inspected. Adhesions were taken down along the left lower quadrant, patient also had adhesions involving the small bowel along the right lower quadrant that was also taken down sharply An inverted U-shaped incision began laterally to the left medial umbilical ligament and extended high across the midline to the right umbilical ligament. The limbs of the "U" extended to the level of the vasa on both sides. We next developed the preperitoneal space and the space of Retzius. Cautery was used to dissected the bladder away from the prostate, the incision was made in close proximity to the prostate, and incision was extended laterally and at this point the plane between the adenoma and the surgical capsule is identified. Patient had significant intravesical extension of his prostate, but both ureteral orifices were identified and neither was injured during the dissection . The adenoma was dissected off of the capsule by combination of blunt dissection and minimum cautery. dissection was initially started along the anterior surface and posterior surface of adenoma, and this was carried laterally. The dissection was carried to the apex, at this point the urethral- prostatic junction was visualized and the prostate was transected at the junction. Prostate adenoma was placed in an endocatch bag . Patient had multiple small bladder stones throughout the bladder, those were removed, and more than 20 bladder stones were removed from the bladder. A 9and 9 inch 3-0 V-Lock suture was used to anastomose the urethra and bladder, starting at the 6:00 posterior position. Mucosa was secured in every stitch, to ensure a mucosa to mucosa anastomosis. The stitch was regularly cinched and the anastomosis tightened. . The 20 Fr Myles catheter was advanced, the bladder filled, and the anastomosis was tested. Anastomsis was watertight at 100 mL. balloon was inflated to 10 mL. The surgical capsule was closed over the bladder, prior to the closure hemostatic agents were applied along the surgical capsule the robot was undocked. specimen was extracted from the supraumbilical incision. The periumbilical fascia was closed with 1-0-PDS suture in running fashion. All ports were closed with a subcuticular 4-0 monocryl and Dermabond. Sponge, instrument, and needle counts were correct at the end of the case x2. The patient tolerated the surgery well and without complication. He awoke without difficulty and was taken to the recovery room in stable condition
[2024-05-06] MEDS: hydroCHLOROthiazide 25 MG TAB PO SCH (21:30)
[2024-05-06] MEDS: lisinopriL 20 MG TAB PO SCH (21:30)
[2024-05-06] MEDS: ATORVASTATIN 10 MG TAB PO SCH (21:30)
[2024-05-06] MEDS: CIPROFLOXACIN HCL 500 MG TAB PO SCH (21:31)
[2024-05-06] MEDS: SODIUM CHLORIDE 0.9% 1,000 ML IV SCH (22:06)
[2024-05-07] MEDS: KETOROLAC 15 MG/ML 1 ML VIAL IVP SCH (00:01)
[2024-05-07] MEDS: HEPARIN SODIUM,PORCINE 5,000 UNIT/ML 1 ML VIAL SQ SCH (00:02)
[2024-05-07] MEDS: glipiZIDE 5 MG TAB PO SCH (08:21)
[2024-05-07] MEDS: CHOLECALCIFEROL 25 MCG (1000 IU) TABLET PO SCH (08:21)
[2024-05-07] MEDS: ARTIFICIAL TEARS-HYPROMELLOSE DROPS 15 ML BTL BOTH EYES SCH (08:22)
[2024-05-07] MEDS: AMOXIC-POT CLAV 875-125MG 1 EACH TAB PO SCH (08:22)
[2024-05-07 11:37] LABS: Glucose,Whole Blood 128 mg/dL (70-110)
[2024-05-07] MEDS: allopurinoL 300 MG TAB PO SCH (12:04)
--- NOTE | 2024-05-07 16:12 | P.DS ---
Providers Attending physician: Gerard Saleh MD Primary care physician: [facility] Course: This is a 73-year-old male with history of BPH and urinary retention. Underwent a robotic simple prostatectomy on May 06. Please see op note dated May 06 for surgery details. Patient was admitted to the hospital postoperatively. He was discharged home with a Gomez catheter on postop day #1, at time of discharge he was tolerating a diet, ambulating, pain was well-controlled, he will follow-up as an outpatient for trial of void Plan - Discharge Summary Discharge Rx Participant: No New Discharge Prescriptions: New Ketorolac [Toradol] 10 mg PO Q6HR PRN #15 tab PRN Reason: Pain No Action allopurinoL [Zyloprim] 300 mg PO 1200 metFORMIN HCL [metFORMIN HCL ER] 1,000 mg PO AC-SUPPER Enalapril [Vasotec] 10 mg PO BID Oxymetazoline 0.05% Nasl [place] [Afrin 0.05% Nasal [place]] 2 spray EA NOSTRIL BID PRN #1 bottle PRN Reason: Bleeding Aspirin [Adult Low Dose Aspirin EC] 81 mg PO HS Vitamin B Complex/Folic Acid [Vitamin B Complex Tablet] 0.4 mg PO DAILY Cholecalciferol (Vitamin D3) [Vitamin D3 (50 Mcg = 2000 Iu) Chew Tab] 2,000 unit PO DAILY Ibuprofen [Motrin] 800 mg PO Q8H PRN PRN Reason: Pain Ciprofloxacin HCl [Cipro] 500 mg PO Q12HR hydroCHLOROthiazide 25 mg PO BID Atorvastatin [Lipitor] 5 mg PO HS glipiZIDE 5 mg PO DAILY Tamsulosin HCl [Flomax] 0.8 mg PO HS Propylene Glycol/Peg 400/Pf [Systane 0.3-0.4% Ophth [place]] 1 dropper BOTH EYES DAILY Amoxic-Pot Clav 875-125Mg [Augmentin 875-125] 1 tab PO DAILY Discharge Medication List Enalapril [Vasotec] 10 mg PO BID 10/31/14 [History] allopurinoL [Zyloprim] 300 mg PO 1200 10/31/14 [History] metFORMIN HCL [metFORMIN HCL ER] 1,000 mg PO AC-SUPPER 10/31/14 [History] Oxymetazoline 0.05% Nasl [place] [Afrin 0.05% Nasal [place]] 2 spray EA NOSTRIL BID PRN #1 bottle 09/10/19 [Rx] Aspirin [Adult Low Dose Aspirin EC] 81 mg PO HS 05/03/24 [History] Atorvastatin [Lipitor] 5 mg PO HS 05/03/24 [History] Cholecalciferol (Vitamin D3) [Vitamin D3 (50 Mcg = 2000 Iu) Chew Tab] 2,000 unit PO DAILY 05/03/24 [History] Ibuprofen [Motrin] 800 mg PO Q8H PRN 05/03/24 [History] Propylene Glycol/Peg 400/Pf [Systane 0.3-0.4% Ophth [place]] 1 dropper BOTH EYES DAILY 05/03/24 [History] Tamsulosin HCl [Flomax] 0.8 mg PO HS 05/03/24 [History] Vitamin B Complex/Folic Acid [Vitamin B Complex Tablet] 0.4 mg PO DAILY 05/03/24 [History] glipiZIDE 5 mg PO DAILY 05/03/24 [History] hydroCHLOROthiazide 25 mg PO BID 05/03/24 [History] Ciprofloxacin HCl [Cipro] 500 mg PO Q12HR 05/05/24 [History] Amoxic-Pot Clav 875-125Mg [Augmentin 875-125] 1 tab PO DAILY 05/06/24 [History] Ketorolac [Toradol] 10 mg PO Q6HR PRN #15 tab 05/07/24 [Rx] Follow up Appointment(s)/Referral(s): Gerard Saleh MD [STAFF PHYSICIAN] - 05/17/24 8:00 am Activity/Diet/Wound Care/Special Instructions: no heavy lifting complete you prescribed antibiotics
[2024-05-07 17:10] LABS: Glucose,Whole Blood 95 mg/dL (70-110)
[2024-05-07] MEDS: metFORMIN 500 MG TAB PO SCH (17:18)
[2024-05-07 21:28] LABS: Glucose,Whole Blood 135 mg/dL (70-110)
[2024-05-08 06:34] LABS: Glucose,Whole Blood 140 mg/dL (70-110)
[2024-05-08 11:28] LABS: Glucose,Whole Blood 116 mg/dL (70-110)
[2024-05-08 14:15] VITALS: BP 133/56; PULSE 79; RESP 16; TEMP 98.1
== END 2024-05-08 14:42 | disposition home or self-care (01) ==
LOC: OR 09:57 → 4SSUR 17:49 → OR 05-08 14:42
PROVIDERS: ATTEND Urology
DX: N40.1 Benign prostatic hyperplasia with lower urinary tract symptoms (principal); R33.8 Other retention of urine; N21.0 Calculus in bladder; E11.9 Type 2 diabetes mellitus without complications; G89.18 Other acute postprocedural pain; I10 Essential (primary) hypertension; M10.9 Gout, unspecified; M19.90 Unspecified osteoarthritis, unspecified site; Z79.82 Long term (current) use of aspirin; Z79.84 Long term (current) use of oral hypoglycemic drugs; Z87.891 Personal history of nicotine dependence; Z90.79 Acquired absence of other genital organ(s); Z79.899 Other long term (current) drug therapy
CPT/HCPCS: 55867; 64488; 88307; 82365; 52310; C1762; J2250; J0330; J1580; J1644 ×2; J1100; J2710; J0690; J2405; J2001; J3010; J1170; J2795; J1885 ×3; J2704; J0665

== ENCOUNTER 2024-05-15 13:47 | Emergency (ER) | payer MEDICARE ==
--- NOTE | 2024-05-15 13:55 | ED ---
Male Urogenital HPI - General Source: patient, RN notes reviewed Mode of arrival: ambulatory Limitations: no limitations <Ramila Piedra - Last Filed: 05/15/24 13:54> <Oliver Gill - Last Filed: 05/15/24 17:54> - General Chief complaint: Urogenital Stated complaint: Cath Issues Time Seen by Provider: 05/15/24 13:54 - History of Present Illness Initial comments: Quick Note: This is a 73-year-old male who presents to the emergency department for problems with his Gomez catheter. Patient is supposed to have his Gomez catheter removed in 2 days after having it placed following his prostate surgery. States that he started to notice the bag filling with blood and is now worried it is not draining. (Ramila Piedra) 73-year-old male who is 9 days postop robotic assisted prostate removal presenting with hematuria. Patient was concerned about his Gomez catheter not draining properly. No fever. No vomiting. No worsening lower abdominal pain. (Oliver Gill) - Related Data Home Medications Medication Instructions Recorded Confirmed Enalapril [Vasotec] 10 mg PO BID 10/31/14 05/06/24 allopurinoL [Zyloprim] 300 mg PO 1200 10/31/14 05/06/24 metFORMIN HCL [metFORMIN HCL ER] 1,000 mg PO AC-SUPPER 10/31/14 05/06/24 Aspirin [Adult Low Dose Aspirin EC] 81 mg PO HS 05/03/24 05/03/24 Atorvastatin [Lipitor] 5 mg PO HS 05/03/24 05/06/24 Cholecalciferol (Vitamin D3) 2,000 unit PO DAILY 05/03/24 05/03/24 [Vitamin D3 (50 Mcg = 2000 Iu) Chew Tab] Ibuprofen [Motrin] 800 mg PO Q8H PRN 05/03/24 05/03/24 Propylene Glycol/Peg 400/Pf 1 dropper BOTH EYES DAILY 05/03/24 05/06/24 [Systane 0.3-0.4% Ophth Dropperette] Tamsulosin HCl [Flomax] 0.8 mg PO HS 05/03/24 05/06/24 Vitamin B Complex/Folic Acid 0.4 mg PO DAILY 05/03/24 05/03/24 [Vitamin B Complex Tablet] glipiZIDE 5 mg PO DAILY 05/03/24 05/06/24 hydroCHLOROthiazide 25 mg PO BID 05/03/24 05/06/24 Ciprofloxacin HCl [Cipro] 500 mg PO Q12HR 05/05/24 05/06/24 Amoxic-Pot Clav 875-125Mg 1 tab PO DAILY 05/06/24 05/06/24 [Augmentin 875-125] Previous Rx's Medication Instructions Recorded Oxymetazoline 0.05% Nasl [place] 2 spray EA NOSTRIL BID PRN #1 09/10/19 [Afrin 0.05% Nasal [place]] bottle Ketorolac [Toradol] 10 mg PO Q6HR PRN #15 tab 05/07/24 Cephalexin [Keflex] 500 mg PO Q8HR 7 Days #21 cap 05/15/24 Allergies Allergy/AdvReac Type Severity Reaction Status Date / Time codeine Allergy Unknown Verified 05/15/24 14:24 Review of Systems ROS Other: All systems not noted in ROS Statement are negative. <Ramila Piedra - Last Filed: 05/15/24 13:54> ROS Other: All systems not noted in ROS Statement are negative. <Oliver Gill - Last Filed: 05/15/24 17:54> ROS Statement: Those systems with pertinent positive or pertinent negative responses have been documented in the HPI. Past Medical History Past Medical History: Diabetes Mellitus, Hypertension, Osteoarthritis (OA), Prostate Disorder Additional Past Medical History / Comment(s): gout History of Any Multi-Drug Resistant Organisms: None Reported Past Surgical History: Orthopedic Surgery Additional Past Surgical History / Comment(s): right hammertoe surg, last colonoscopy 6 yrs ago, suleman cataract surg Aug 2023 Past Anesthesia/Blood Transfusion Reactions: No Reported Reaction Past Psychological History: No Psychological Hx Reported Smoking Status: Former smoker Past Alcohol Use History: None Reported Additional Past Alcohol Use History / Comment(s): smoked occasionally in college 50 yrs ago Past Drug Use History: None Reported <Ramila Piedra - Last Filed: 05/15/24 13:54> General Exam <Ramila Piedra - Last Filed: 05/15/24 13:54> General appearance: alert, in no apparent distress Head exam: Present: atraumatic, normocephalic Eye exam: Present: normal appearance, PERRL Respiratory exam: Present: normal lung sounds bilaterally. Absent: respiratory distress Cardiovascular Exam: Present: regular rate, normal rhythm GI/Abdominal exam: Present: other (Sites are well-healing,). Absent: tenderness exam: Present: other (small amount of blood surrounding Gomez catheter at the meatus). Absent: scrotal swelling Neurological exam: Present: alert, oriented X3 Psychiatric exam: Present: normal affect, normal mood Skin exam: Present: warm, dry, intact <Oliver Gill - Last Filed: 05/15/24 17:54> - General Exam Comments Initial Comments: Visual Physical Exam Vital signs reviewed General: Well-appearing, nontoxic, no acute distress. Head: Normocephalic, atraumatic Eyes: PERRLA, EOMI ENT: Airway patent Chest: Nonlabored breathing Skin: No visual rash, normal skin tone Neuro: Alert and oriented 3 Musculoskeletal: No gross abnormalities (Ramila Piedra) Course Vital Signs 05/15/24 14:21 Temperature 98.1 F Pulse Rate 81 Respiratory 20 Rate Blood Pressure 146/83 O2 Sat by Pulse 99 Oximetry Medical Decision Making <Ramila Piedra - Last Filed: 05/15/24 13:54> <Oliver Gill - Last Filed: 05/15/24 17:54> - Medical Decision Making I performed the QuickNote portion of this chart. Signed Ramila Piedra PA-C. (Ramila Piedra) Was pt. sent in by a medical professional or institution ([facility], [employer], urgent care, hospital, or care home...) When possible be specific @ -No Did you speak to anyone other than the patient for history (EMS, parent, family, police, friend...)? What history was obtained from this source @ -No Did you review nursing and triage notes (agree or disagree)? Why? @ -I reviewed and agree with nursing and triage notes Were old charts reviewed (outside hosp., previous admission, EMS record, old EKG, old radiological studies, urgent care reports/EKG's, care home records)? Report findings @ -No old charts were reviewed Differential Diagnosis: UTI, postoperative hematuria, occluded Gomez catheter EKG interpreted by me (3pts min.). @ -As above X-rays interpreted by me (1pt min.). @ -None done CT interpreted by me (1pt min.). @ -None done U/S interpreted by me (1pt. min.). @ -None done What testing was considered but not performed or refused? (CT, X-rays, U/S, labs)? Why? @ -None What meds were considered but not given or refused? Why? @ -None Did you discuss the management of the patient with other professionals (professionals i.e. , PA, WAX ENGRAVER, lab, RT, psych nurse, social media project manager, washer machine, teacher, disabilities services officer, dependency case manager)? Give summary @ -No Was smoking cessation discussed for >3mins.? @ -No Was critical care preformed (if so, how long)? @ -No Were there social determinants of health that impacted care today? How? (Homelessness, low income, unemployed, alcoholism, drug addiction, transportation, low edu. Level, literacy, decrease access to med. care, detention, rehab)? @ -No Was there de-escalation of care discussed even if they declined (Discuss DNR or withdrawal of care, Hospice)? DNR status @ -No What co-morbidities impacted this encounter? (DM, HTN, Smoking, COPD, CAD, Cancer, CVA, ARF, Chemo, Hep., AIDS, mental health diagnosis, sleep apnea, morbid obesity)? @ -None Was patient admitted / discharged? Hospital course, mention meds given and route, prescriptions, significant lab abnormalities, going to OR and other pertinent info. @ 73 [id number]-old male, 9 days status post prostatectomy presenting with hematuria. Bladder scan is at the most 50. He has had 900 cc of urine output today. Urine is gross hematuria. He has had no fever. No vomiting. Lower abdominal pain is improving in the postoperative period I did monitor Gomez catheter and he is making an appropriate amount of urine approximately 50 cc/h. Urinalysis is hemorrhagic. Patient covered with prophylactic antibiotics and does have urology follow-up on Friday which is 2 days from now. Return parameters discussed. Undiagnosed new problem with uncertain prognosis? @ -No Drug Therapy requiring intensive monitoring for toxicity (Heparin, Nitro, Insulin, Cardizem)? @ -No Were any procedures done? @ -No Diagnosis/symptom? @ - post Operative hematuria Acute, or Chronic, or Acute on Chronic? @ -acute Uncomplicated (without systemic symptoms) or Complicated (systemic symptoms)? @ -Default Side effects of treatment? @ -No Exacerbation, Progression, or Severe Exacerbation? @ -No Poses a threat to life or bodily function? How? (Chest pain, [place], [place], pneumonia, PE, COPD, DKA, ARF, appy, cholecystitis, CVA, Diverticulitis, Homicidal, Suicidal, threat to staff... and all critical care pts) @ -No (Oliver Gill) - Lab Data Lab Results 05/15/24 Range/Units 17:26 Urine Color Dark Red Urine Appearance Bloody (Clear) Urine RBC >182 H (0-5) /hpf Urine WBC 182 H (0-5) /hpf Urine Mucus Moderate H (None) /hpf Disposition <Ramila Piedra - Last Filed: 05/15/24 13:54> Is patient prescribed a controlled substance at d/c from ED?: No Time of Disposition: 17:40 <Oliver Gill - Last Filed: 05/15/24 17:54> Clinical Impression: Hematuria Disposition: HOME SELF-CARE Condition: Good Instructions (If sedation given, give patient instructions): Hematuria (ED) Prescriptions: Cephalexin [Keflex] 500 mg PO Q8HR 7 Days #21 cap Referrals: Radha Wheeler MD [Primary Care Provider] - 1-2 days Gerard Saleh MD [STAFF PHYSICIAN] - 1-2 days
[2024-05-15 14:24] VITALS: TEMP 98.1
[2024-05-15 17:42] LABS: Appearance,Urine Bloody (Clear); Mucus,Urine Moderate /hpf; RBC,Urine >182 /hpf (0-5); WBC,Urine 182 /hpf (0-5)
[2024-05-15 17:43] LABS: Color,Urine Dark Red
[2024-05-15] MEDS: CEPHALEXIN 500MG STARTER PACK 4 CAP BTL PO STA (18:03)
[2024-05-15 18:09] VITALS: BP 128/78; PULSE 74; RESP 18
== END 2024-05-15 18:11 | disposition home or self-care (01) ==
LOC: EC 13:47
DX: N99.89 Other postprocedural complications and disorders of genitourinary system (principal); R31.9 Hematuria, unspecified; Y73.8 Miscellaneous gastroenterology and urology devices associated with adverse incidents, not elsewhere classified; Z88.5 Allergy status to narcotic agent; Z87.891 Personal history of nicotine dependence
CPT/HCPCS: 51798; 81001; 87086; 99284

== ENCOUNTER 2024-07-14 11:25 | Emergency (ER) | payer MEDICARE ==
[2024-07-14] MEDS ORDERED: ONDANSETRON 4 MG/2 ML VIAL ONE (13:47)
[2024-07-14] MEDS ORDERED: KETOROLAC 15 MG/ML 1 ML VIAL ONE (13:47)
[2024-07-14] MEDS ORDERED: diphenhydrAMINE 50 MG/ML 1 ML VIAL ONE (13:47)
[2024-07-14] MEDS ORDERED: SODIUM CHLORIDE 0.9% 1,000 ML BAG ONE (13:47)
[2024-07-14] MEDS ORDERED: DEXAMETHASONE SOD PHOSPHATE 10 MG/ML 1 ML VIAL ONE (14:47)
== END 2024-07-14 15:05 | disposition home or self-care (01) ==
LOC: EC 11:25
DX: R42 Dizziness and giddiness (principal)
CPT/HCPCS: 96374; 96375; 99284

== ENCOUNTER 2024-07-19 08:46 | Emergency (ER) | payer MEDICARE ==
[2024-07-19] MEDS ORDERED: methylPREDNISolone SOD SUCCI 125 MG/2 ML VIAL ONE (11:08)
[2024-07-19] MEDS ORDERED: KETOROLAC 15 MG/ML 1 ML VIAL ONE (11:08)
[2024-07-19] MEDS ORDERED: WATER FOR INJECTION, STERILE 10 ML IV ONE (11:11)
[2024-07-19] MEDS ORDERED: SODIUM CHLORIDE 0.9% 1,000 ML BAG ONE (11:13)
[2024-07-19] MEDS ORDERED: ONDANSETRON 4 MG ODT STARTER PACK 2 TAB BTL ONE (12:10)
== END 2024-07-19 12:25 | disposition home or self-care (01) ==
LOC: EC 08:46
DX: J40 Bronchitis, not specified as acute or chronic (principal)
CPT/HCPCS: 96361; 96374; 96375; 99283